=== PATIENT | female | born 1990 | race Caucasian/White ===

== ENCOUNTER 2016-08-17 07:00 | Inpatient (IN) | payer OTHER, MEDICAID ==
[~2016-08-17] VITALS: Ht 170.2 cm; Wt 93.9 kg
--- NOTE | ~2016-08-17 | FD ---
ADMIT: 08/17/2016 RM/LOC: 201 [facility] MR#: [id number] [facility] [address] [place], [place] [address] GAMALIELJANEL PAOLAViky Carmen [address] [address] Final Diagnosis SEX: F AGE: 25 : 1990 ADMISSION DATE: 08/17/2016 DISCHARGE DATE: 08/18/2016 FINAL DIAGNOSES: 1. Status post spontaneous vaginal delivery. 2. Obesity. 3. History of gestational hypertension in previous . 4. History of MRSA (methicillin-resistant Staphylococcus aureus) cellulitis of axilla. PROCEDURE: 1. Spontaneous vaginal delivery. 2. Removal of epidural catheter. Aletha Adkins MD/ john JOB #: [id number] CC: Aletha Adkins MD, Attending Physician UNKNOWN, Family Physician
[2016-08-19] MEDS ORDERED: COLACE-DPS100 MG PO (18:07)
[2016-08-19] MEDS ORDERED: MOTRIN-DPS800 MG PO (18:07)
[2016-08-19] MEDS ORDERED: PRENATAL VIT1 TAB PO (18:07)
--- NOTE | 2016-08-25 08:24 | HP ---
ADMIT: 08/17/2016 RM/LOC: 201 [facility] MR#: [id number] [id number] [facility] [address] [place], [place] [address] NADEEN SALCEDO Carmen [address] [address] History and Physical SEX: F AGE: 25 : 1990 DATE OF SERVICE: 08/17/2016 CHIEF COMPLAINT: Induction of labor. HISTORY OF PRESENT ILLNESS: The patient is a 25-year-old, 2, para 1-0- 0-1 with intrauterine at 39 and 0/7th weeks by a 7-week ultrasound, who presents to Labor and Delivery for elective induction of labor at term. PAST MEDICAL HISTORY: 1. History of gestational hypertension in previous . 2. Obesity. 3. History of MRSA cellulitis of left axilla. PAST SURGICAL HISTORY: Sinus surgery in 2006, tonsillectomy and adenoidectomy in 1993. FAMILY HISTORY: Sister with anencephaly. Mother and maternal grandmother with hypertension. Maternal grandmother with cervical cancer. Mother with type 2 diabetes and depression. SOCIAL HISTORY: The patient denies alcohol, tobacco, or illicit drug use. She is single, but the father of the baby, Christopher, is involved. The patient is a [id number] mom. MEDICATIONS: 1. vitamins 1 tablet p.o. daily. 2. Aspirin 81 mg p.o. daily. 3. Ferrous gluconate 324 mg 1 tablet p.o. daily. 4. Tums one tablet four times daily p.r.n. ALLERGIES: SULFA DRUGS, WHICH CAUSE NAUSEA. REVIEW OF SYSTEMS: The patient denies vaginal bleeding, loss of fluid, uterine contractions, or decreased movement. OBSTETRICAL LABS: Blood type O positive, antibody screen negative, RPR nonreactive, rubella immune, HIV negative, gonorrhea and chlamydia negative, hepatitis B surface antigen negative. Diabetic screen 103. Group B strep negative. PHYSICAL EXAMINATION: GENERAL: Well-developed, well-nourished, white female. Alert and oriented x3, in no acute distress. VITAL SIGNS: Blood pressure 126/77, pulse 93, respirations 18, temperature 98.6 degrees Fahrenheit. Height 5 feet 7 inches and weight 207 pounds. HEENT: Head is normocephalic and atraumatic. Pupils are equal and round. Extraocular muscles are intact. NECK: Supple. Trachea midline. Thyroid not palpable. HEART: Regular rate and rhythm. LUNGS: Clear to auscultation bilaterally. ADMIT: 08/17/2016 RM/LOC: 201 [facility] MR#: [id number] [address] [address] MATIAS PAOLAViky Morales [address] [address] History and Physical SEX: F AGE: 25 : 1990 ABDOMEN: Soft, nontender, and gravid. EXTREMITIES: No clubbing, cyanosis, or edema. NEUROLOGIC: Cranial nerves II through XII grossly intact. 2+ deep tendon reflexes noted. PELVIC: Sterile vaginal examination by the nurse on admission reveals the cervix to be 3 cm dilated, 50% effaced, -2 station. heart tones are in the 130s with 15 x 15 accelerations, moderate long-term variability, and no decelerations. Irregular uterine contractions are noted on the monitor. ASSESSMENT AND PLAN: 1. This is a 25-year-old, 2, para 1-0-0-1 with an intrauterine at 39 and 0/7th weeks by a 7-week ultrasound, who presents to Labor and Delivery for elective induction of labor at term. 2. Group B strep negative. No prophylaxis will be provided. 3. Fetus is vertex and overall reassuring. Aletha Adkins MD/ charly JOB #: [id number] CC: Aletha Adkins, Attending Physician UNKNOWN, Family Physician
--- NOTE | 2016-08-25 08:25 | OR ---
ADMIT: 08/17/2016 RM/LOC: 201 [facility] MR#: [id number] [address] [address] NADEEN SALCEDO [address] [address] Operative/Delivery Room Report SEX: F AGE: 25 : 1990 SURGERY DATE: 08/17/2016 SURGEON: Aletha Adkins MD DELIVERY NOTE: The patient delivered a viable male infant by spontaneous vaginal delivery at 1523 hours. A nuchal cord x1 was reduced. The was placed on the mother's abdomen, and the cord was doubly clamped and cut. The infant was handed off to the awaiting nurse. Cord blood was sent. The infant's weight was 3500 g. Apgars were 9 and 9. The placenta then delivered spontaneously intact with a three-vessel cord. Twenty units of Pitocin were infused with intravenous fluids. An examination of the perineum revealed a periurethral laceration and a second-degree perineal laceration, which were repaired with 3-0 Vicryl in the usual fashion with excellent hemostasis. Estimated blood loss for the entire procedure was 400 mL. The patient and are in her room in stable condition. The epidural catheter was removed intact without difficulty at the conclusion of the procedure. Aletha Adkins MD/ charly JOB #: [id number] CC: Aletha Adkins, Attending Physician UNKNOWN, Family Physician
== END 2016-08-18 17:25 | disposition home or self-care (01) | DRG 775 ==
LOC: BC 07:00 → 2LDRP 07:00 → BC 08-24 08:00
PROVIDERS: ADMIT Obstetrics & Gynecology
PROC: 3E033VJ Introduction of Other Hormone into Peripheral Vein, Percutaneous Approach (ICD-10-PCS; principal; 2016-08-17)
PROC: 10E0XZZ Delivery of Products of Conception, External Approach (ICD-10-PCS; principal; 2016-08-17)
PROC: 10907ZC Drainage of Amniotic Fluid, Therapeutic from Products of Conception, Via Natural or Artificial Opening (ICD-10-PCS; principal; 2016-08-17)
PROC: 0KQM0ZZ Repair Perineum Muscle, Open Approach (ICD-10-PCS; principal; 2016-08-17)
DX: O69.81X0 Labor and delivery complicated by cord around neck, without compression, not applicable or unspecified (principal); E66.9 Obesity, unspecified; O99.214 Obesity complicating childbirth; O70.1 Second degree perineal laceration during delivery; Z68.32 Body mass index [BMI] 32.0-32.9, adult; Z3A.39 39 weeks gestation of pregnancy; Z37.0 Single live birth